=== PATIENT | female | born 1975 | race Caucasian/White ===

== ENCOUNTER → 2018-09-07 08:29 | Outpatient (CLI) | payer OTHER, SELFPAY ==
--- NOTE | 2018-09-07 | DI.MG.S_ITS ---
BILATERAL DIGITAL SCREENING MAMMOGRAM 3D/2D WITH CAD: 09/07/2018 CLINICAL: Baseline exam. Routine screening. No prior exams were available for comparison. The tissue of both breasts is heterogeneously dense. This may lower the sensitivity of mammography. Current study was also evaluated with a Computer Aided Detection (CAD) system. There is a focal asymmetry in the right breast upper outer aspect posterior depth. There also is a focal asymmetry in the right breast upper outer aspect middle depth. There is an asymmetry in the left breast inner aspect middle depth with possible architectural distortion. There are calcifications in the left breast posterior depth lower region seen on the mediolateral oblique view only. IMPRESSION: INCOMPLETE: NEEDS ADDITIONAL IMAGING EVALUATION 1) The focal asymmetry in the right breast upper outer aspect posterior depth is indeterminate. Additional views with possible ultrasound are recommended. 2) The focal asymmetry in the right breast upper outer aspect middle depth is indeterminate. Additional views with possible ultrasound are recommended. 3) The calcifications in the left breast posterior depth lower region seen on the mediolateral oblique view only is indeterminate. Magnification views as well as additional views with possible ultrasound are recommended. 4) The asymmetry in the left breast inner aspect middle depth with possible architectural distortion is indeterminate. Additional views with possible ultrasound are recommended. This exam was interpreted at Station ID: [id number]. NOTE: For mammograms, a report in lay terms will be sent to the patient. Approximately 15% of breast malignancies will not be visualized mammographically. In the management of a palpable breast mass, a negative mammogram must not discourage biopsy of a clinically suspicious lesion. Electronically Signed By: Issa Dumont M.D. ecl/:09/09/2018 09:26:14 letter sent: Additional Imaging Needed ACR BI-RADS Category 0: Incomplete 3340F
== END ==
PROVIDERS: PCP Internal Medicine; Visit Provider Internal Medicine
DX: Z12.31 Encounter for screening mammogram for malignant neoplasm of breast (principal)
CPT/HCPCS: 77063; 77067

== ENCOUNTER → 2018-09-26 13:29 | Outpatient (CLI) | payer OTHER, SELFPAY ==
--- NOTE | 2018-09-26 | DI.US.S_ITS ---
LIMITED ULTRASOUND OF RIGHT BREAST: 09/26/2018 CLINICAL: Patient returns today to evaluate asymmetries in the right breast. Comparison is made to exams dated: 09/26/2018 mammogram and 09/07/2018 mammogram - [facility]. Real-time and Doppler ultrasound of the right breast upper outer quadrant were performed. Del Real scale images of the real-time examination were reviewed. No underlying breast mass or abnormality is identified. There is no ultrasound correlate for the previously noted focal asymmetry in the right breast upper outer aspect posterior depth or the focal asymmetry in the right breast upper outer aspect middle depthon seen comparison screening mammograms, which also resolved on additional diagnostic mammogram views performed earlier today. IMPRESSION: NEGATIVE There is no sonographic evidence of malignancy in the imaged portions of the right breast. Return to annual screening mammography is recommended. The patient is advised to monitor her breasts and to return sooner for re-evaluation should she feel anything grow or change. This exam was interpreted at Station ID: [id number]. Electronically Signed By: Issa Dumont M.D. ecl/:09/26/2018 17:55:30 letter sent: Normal Exam Ultrasound BI-RADS: 1 Negative
--- NOTE | 2018-09-26 | DI.US.S_ITS ---
LIMITED ULTRASOUND OF LEFT BREAST: 09/26/2018 CLINICAL: Patient returns today to evaluate an asymmetry in the left breast. Comparison is made to exams dated: 09/26/2018 ultrasound, 09/26/2018 mammogram, and 09/07/2018 mammogram - [facility]. Real-time and Doppler ultrasound of the left breast upper inner quadrant were performed. Del Real scale images of the real-time examination were reviewed. No underlying breast mass or abnormality is identified. There is no ultrasound correlate for the previously noted asymmetry in the left breast upper inner aspect middle depth with possible architectural distortion seen on comparison screening mammograms, which also resolved on additional diagnostic mammogram views performed earlier today. IMPRESSION: NEGATIVE There is no ultrasound evidence of malignancy in the imaged portions of the left breast. Return to annual screening mammography is recommended. The patient is advised to monitor her breasts and to return sooner for re-evaluation should she feel anything grow or change. This exam was interpreted at Station ID: [id number]. Electronically Signed By: Issa Dumont M.D. ecl/:09/26/2018 17:53:18 letter sent: Normal Exam Ultrasound BI-RADS: 1 Negative
--- NOTE | 2018-09-26 | DI.MG.S_ITS ---
BILATERAL DIGITAL DIAGNOSTIC MAMMOGRAM 3D/2D WITH ADDITIONAL VIEWS: 09/26/2018 CLINICAL: Additional evaluation requested from prior study. Comparison is made to exam dated: 09/07/2018 [facility]. The tissue of both breasts is heterogeneously dense. This may lower the sensitivity of mammography. The previously noted focal asymmetry in the right breast upper outer aspect posterior depth, focal asymmetry in the right breast upper outer aspect middle depth, and asymmetry in the left breast inner aspect middle depth with possible architectural distortion seen on comparison screening mammogram resolve and have the appearance of benign fibroglanduar tissues with additional views. The asymmetry seen in the left breast inner aspect middle depth resolves to glandular tissue in the upper inner left breast. Previously noted calcifications in the left breast posterior depth lower region seen on the mediolateral oblique view only on comparison screening mammograms appear benign with additional and magnification views. IMPRESSION: INCOMPLETE: NEEDS ADDITIONAL IMAGING EVALUATION 1) The previously noted focal asymmetry in the right breast upper outer aspect posterior depth, focal asymmetry in the right breast upper outer aspect middle depth, and asymmetry in the left breast inner aspect middle depth with possible architectural distortion seen on comparison screening mammogram resolve with additional views. A targeted ultrasound is recommended for further evaluation. 2) Previously noted calcifications in the left breast posterior depth lower region seen on the mediolateral oblique view only on comparison screening mammograms appear benign with additional and magnification views. This exam was interpreted at Station ID: [id number]. NOTE: For mammograms, a report in lay terms will be sent to the patient. Approximately 15% of breast malignancies will not be visualized mammographically. In the management of a palpable breast mass, a negative mammogram must not discourage biopsy of a clinically suspicious lesion. Electronically Signed By: Issa Dumont M.D. ecl/:09/26/2018 17:50:47 ACR BI-RADS Category 0: Incomplete 3340F
== END ==
PROVIDERS: PCP Internal Medicine; Visit Provider Internal Medicine
DX: R92.8 Other abnormal and inconclusive findings on diagnostic imaging of breast (principal); R92.1 Mammographic calcification found on diagnostic imaging of breast
CPT/HCPCS: 76642; 77066; G0279

== ENCOUNTER → 2020-04-13 08:36 | Outpatient (CLI) | payer OTHER, SELFPAY ==
--- NOTE | 2020-04-13 | DI.CT.S_ITS ---
PROCEDURE: CT ABDOMEN PELVIS WO CON INDICATIONS: Unspecified abdominal pain,Dysuria TECHNIQUE: Noncontrast 5 mm thick sections acquired from the diaphragms to the symphysis. 5 mm coronal and sagittal reformats were then performed. For radiation dose reduction, the following was used: automated exposure control, adjustment of mA and/or kV according to patient size. COMPARISON: None. FINDINGS: Image quality: Excellent. ABDOMEN: Lung bases: Lung bases are clear. Heart size is normal. Solid organs: Liver is normal in size. Gallbladder appears normal . Pancreas is normal in contours. Spleen is normal in size. No adrenal nodules. Kidneys are normal in size, without hydronephrosis or nephrolithiasis. Peritoneum and bowel: Unenhanced bowel loops demonstrate normal wall thickness and caliber. No free fluid or air. Nodes and vessels: No retroperitoneal or mesenteric adenopathy by size criteria. Aorta and inferior vena cava are normal in caliber. Miscellaneous: No ventral hernias. PELVIS: Genitourinary: Bladder wall thickness is normal. Miscellaneous: No inguinal hernias or adenopathy. Bones: No suspicious bony lesions. No vertebral body compression fractures. IMPRESSION: Source of current abdominal pain is not identified. No hydronephrosis or nephrolithiasis is seen. The study is performed without intravenous contrast but no perinephric edema is identified. Dictated by: Micah Joaquin M.D. on 04/13/2020 at 14:44 Approved by: Micah Joaquin M.D. on 04/13/2020 at 14:45
== END ==
PROVIDERS: PCP Internal Medicine; Referring Provider Internal Medicine; Visit Provider Internal Medicine
DX: R10.9 Unspecified abdominal pain (principal); R30.0 Dysuria
CPT/HCPCS: 74176

== ENCOUNTER → 2020-06-18 12:05 | Outpatient (CLI) | payer OTHER, SELFPAY ==
--- NOTE | 2020-06-18 | DI.US.S_ITS ---
PROCEDURE: US PELVIC COMPLETE INDICATIONS: DYSMENORRHEA TECHNIQUE: Real-time scanning was performed of the pelvic organs, with image documentation. Additional endovaginal scanning was necessary due to incomplete visualization of the adnexal and endometrial structures by transabdominal scanning. COMPARISON: [facility], CT, CT ABDOMEN PELVIS WO CON, 04/13/2020, 8:52. FINDINGS: Transabdominal scanning: Limited scanning through the kidneys shows no hydronephrosis. No pathologic free abdominal or pelvic fluid. Endovaginal scanning: Uterus: Uterus is normal in size at 9.5 x 4.4 x 5.3 cm. The endometrium measures 10 mm in combined thickness. There is a fibroid seen along the mid uterus submucosally that measures 1.5 x 1.3 x 2 cm. Along the cervix, there is a 2 x 0.7 x 0.8 cm polyp versus clot seen with surrounding fluid. No abnormal vascularity can be seen. Ovaries: The right ovary measures 2.3 x 1.9 x 2.4 cm and demonstrates a simple cyst within it which is considered to be within physiologic limits that measures up to 2.1 cm. The left ovary is not seen on this study. No adnexal masses are seen on either side. IMPRESSION: There is a submucosal uterine fibroid seen that measures up to 2 cm. Along the cervical canal, there is a polyp versus clot seen that measures up to 2 cm. At clinical discretion, a followup pelvic ultrasound could be considered in 6 weeks to assure resolution/ improvement. If this does not resolve in 6 weeks, then please consider a dedicated sonohysterogram or gynecological protocol MRI (without and with contrast) for further evaluation (assuming that there is no contraindication). Limited study, without visualization of the left ovary. Dictated by: Elgin Hernandez M.D. on 06/18/2020 at 12:22 Approved by: Elgin Hernandez M.D. on 06/18/2020 at 12:25
== END ==
PROVIDERS: PCP Internal Medicine; Referring Provider Internal Medicine; Visit Provider Internal Medicine
DX: N92.0 Excessive and frequent menstruation with regular cycle (principal); D25.0 Submucous leiomyoma of uterus
CPT/HCPCS: 76830; 76856

== ENCOUNTER → 2020-08-18 14:16 | Outpatient (CLI) | payer OTHER, SELFPAY ==
[2020-08-18 14:49] LABS: COVID19 -Nasal RAPID Negative (Negative)
== END ==
PROVIDERS: PCP Internal Medicine; Visit Provider Obstetrics & Gynecology
DX: Z01.812 Encounter for preprocedural laboratory examination (principal); Z20.822 Contact with and (suspected) exposure to COVID-19
CPT/HCPCS: 87635

== ENCOUNTER 2020-08-19 06:07 | Day surgery (SDC) | payer OTHER, SELFPAY ==
[2020-08-19] VITALS (17 sets, daily range): BP systolic 103–132; BP diastolic 67–82; PULSE 74–979; RESP 10–20; TEMP 36.3–37.4; O2SAT 91–97; BMI 33.5
--- NOTE | 2020-08-19 | PATH_ITS ---
[facility] Accession Number: [id number] . 01 Material submitted: . PART A: ovary - LEFT OVARIAN CYST PART B: uterus - UTERUS AND BILATERAL FALLOPIAN TUBES . 01 Clinical history: . [facility] W/CHANDRIKA SALPINGECTOMY *OPB* . 02 Diagnosis: A. Left Ovarian Cyst: Portions of benign corpus luteum cyst (2.0 x 1.5 x 1.2 cm in aggregate dimension). . B. Uterus and Bilateral Fallopian Tubes, Laparoscopic Supracervical Hysterectomy with Bilateral Salpingectomy (Morcellated Uterus, Weight 90 grams): Proliferative endometrium; negative for glandular hyperplasia, cytologic atypia, or malignancy. Myometrium with multiple mitotically active intramural leiomyomas (5-20 mm in greatest dimension); negative for cytologic atypia or regions of necrosis. Uterine serosa with no significant histomorphologic abnormality. Falloipan tubes with a focally disrupted serosal surface and with multiple benign paratubal cysts (1-3 mm in greatest dimension); negative for atypia or malignancy. [facility] 08/23/2020 1552 Local . 02 Electronically signed: . Lisette Isidro MD, Pathologist NPI- [id number] . 01 Gross description: . A. Specimen A is received in formalin labeled left ovarian cyst and consists of two noble-pink cyst fragments, measuring 2.0 x 1.5 x 1.2 cm in aggregate. The inner lining is noble-pink and smooth with no papillary excrescences. The specimen is serially sectioned and entirely submitted in cassettes A1-A2. B. Specimen B is received in formalin labeled uterus and bilateral fallopian tubes and consists of a 90 gram morcellated uterus measuring 11.0 x 10.0 x 5.5 cm in aggregate. The cervix is not identified. The serosa is noble-pink and smooth. There is minimal identifiable noble-pink endometrium measuring 0.1 cm in thickness. The myometrium is noble-pink and trabeculated. There are multiple noble-white, whorled leiomyomata and leiomyomata fragments ranging from 0.5 to 2.0 cm with no areas of hemorrhage, necrosis or cystic degeneration. Also, received are two detached fallopian tubes averaging 5.5 cm in length x 0.8 cm in diameter. The serosa is noble-pink, focally disrupted and smooth with multiple paratubal cysts ranging from 0.1 to 0.3 cm. [employer] sections are submitted. . B1-B3 - [employer] candidate endometrium. B4-B5 - [employer] leiomyomata. B6-B7 - [employer] myometrium and serosa. B8-B9 - Fallopian tubes, telephone service representative cross sections and bisected fimbria. ([id number]) /[facility] 08/20/2020 1635 Local . 02 Pathologist provided ICD-10: N92.0, N94.6 . 02 CPT . 269346, [id number] Performed at: 01 [facility] [address] [id number] MD Cory Menendez MD Phone: [phone] Performed at: 02 [facility] [address] [place] [id number] MD Lynn Monroy MD Phone: [phone]
[2020-08-19] MEDS: LACTATED RINGERS 1,000 ML 42 ML IV ×2 (07:21→08:52)
--- NOTE | 2020-08-19 07:25 | SUR.OPER ---
Lithotomy on padded OR bed. [place] Pad Positioner under torso. Head on pillow, arms padded and tucked at sides. Legs secured in padded yellow fins stirrups.
--- NOTE | 2020-08-19 07:43 | PM.PREOP ---
Pre-operative Note COVID-19 COVID-19 status: Negative Result date/Date tested (Pos, Neg/Pending): 08/18/20 Interval Note History & Physical reviewed/Exam performed by Physician: Yes Changes to H&P: No H&P completed within 30 days and has changed as indicated here:: 08/18/20
[2020-08-19] MEDS: SCOPOLAMINE 1 PATCH TOP ×2 (07:45→07:46)
[2020-08-19] MEDS: GABAPENTIN 300 MG CAPSULE PO ×2 (07:45)
[2020-08-19] MEDS: ACETAMINOPHEN 325 MG TABLET 975 MG PO (07:45)
[2020-08-19] MEDS: CEFAZOLIN 2 GM/100 ML FROZ.PIGGY IV (07:58)
[2020-08-19] MEDS: BUPIVACAINE 0.5% W/ EPI (PF) 30 ML VIAL INJ (08:32)
--- NOTE | 2020-08-19 09:55 | PM.GYNOP.1 ---
Operative Date/Time/Diagnoses Date of procedure: 08/19/20 Time of procedure: 09:55 Pre-op diagnosis: Fibroids Menorrhagia Dysmenorrhea Post-op diagnosis: same (With bladder adhesions and left ovarian cyst) Procedure & Clinicians Procedure: Procedures Operation Date: 08/19/20 07:45 Actual Procedures Side Surgeon p Laparoscopic Supracervical Hysterectomy w/ bilateral salpingectomy and excision left ovarian cyst Augustina Pérez MD Indications: Fibroid uterus Menorrhagia Dysmenorrhea Pelvic pain Surgeon: Augustina Pérez Liaison Inspection Laboratory Assistant: Bessy Isabel Anesthesia Type: General and Local Operative Notes Findings: Eight week size anteverted uterus Normal tubes bilaterally Normal right ovary Left ovary with 3 cm simple cyst Normal liver gallbladder Normal appendix Lower uterine segment to bladder adhesions Closure Type: primary Specimen(s): left tube, right tube and uterus Applied: catheter (To continuous drainage) Estimated blood loss (mL): 50 Blood products transfused: none Procedure in detail: The patient was taken to the operating room where she was placed in the dorsal supine position. After adequate general endotracheal anesthesia was achieved, she was placed in the dorsal lithotomy position, and prepped and draped in the usual sterile fashion. A timeout was performed. A bivalve speculum was placed into the vagina and the anterior lip of the cervix grasped with a single-tooth tenaculum. The cervical os was sequentially dilated until the ZUMI uterine manipulator could pass easily into the endometrial cavity. The single-tooth tenaculum was removed from the anterior lip of the cervix, and the bivalve speculum was removed from the vagina. Attention was then turned to the abdomen where 6 mL of half percent Marcaine with epinephrine were injected in the umbilical fold. A 5 mm incision was made. The Verhees needle was placed into the peritoneal cavity, and its placement confirmed by aspiration and drop test. The Verhees needle was removed. A 5 mm trocar was placed without difficulty. 2 other incisions were made 4 cm lateral to the umbilicus after 5 mL of half percent Marcaine with epinephrine were injected. These were 5 mm incisions. Two 5 mm trocars were placed under direct visualization. The right tube was grasped with an atraumatic grasper. Using the plasma kinetic with settings of 40 W the mesosalpinx was cauterized and cut all the way down to the cornua of the uterus. The cornua of the uterus was then grasped with an atraumatic grasper. The utero-ovarian ligaments were cauterized and cut. The round ligament and broad ligament was cauterized and cut with plasma kinetic. Hemostasis was achieved. The bladder flap was created using the endoshears. The uterine arteries on the right side were extensively cauterized with plasma kinetic. All of this was repeated on the left side. The remainder of the bladder flap was created using the endoshears with careful dissection, and the bladder taken down off the lower uterine segment and cervix. Using the [place], the cervix was amputated from the uterus 2 cm above the uterosacral ligaments, after the ZUMI uterine manipulator was removed from the uterus. There was a small amount of bleeding noted from the posterior edge of the cervix, and this was cauterized for hemostasis. The endocervical canal was extensively cauterized. A sponge stick was placed into the vagina. 6 mL of half percent Marcaine with epinephrine were injected above the pubic symphysis. A 12 mm trocar was placed. An Endobag was placed through the suprapubic trocar and the uterus placed into the Endobag. The Cameron placed into the endobag. The uterus and tubes were hand morcellated in approximately 10 pieces. The Endobag was removed from the peritoneal cavity with the Cameron. The pelvis was copiously irrigated with warm normal saline. No bleeding was noted. The instruments are removed from the abdomen. The CO2 was allowed to escape. The suprapubic incision was closed on the fascia with 0 Vicryl. Two simple interrupted sutures with 2-0 Vicryl were placed in the subcutaneous layer to reapproximate. All of the incisions were closed with 4-0 Biosyn in a subcuticular fashion. The moistened sponge stick was removed from the vagina. Sponge, lap, and instrument counts were correct x-2. The patient tolerated the procedure well, was taken to PACU in stable condition. Complications: none Post-operative Condition: stable Disposition: PACU Plan for aftercare: To acute care after recovery
[2020-08-19] MEDS: fentaNYL 100 MCG/2 ML INJ IV ×3 (10:00→10:26)
[2020-08-19] MEDS: OXYCODONE IR 5 MG TABLET PO ×5 (10:22→23:19)
[2020-08-19] MEDS: LACTATED RINGERS 1,000 ML 100 ML IV (14:17)
[2020-08-19] MEDS: CEFAZOLIN 1 GM/50 ML FROZ.PIGGY IV ×2 (16:43→23:51)
[2020-08-19] MEDS: KETOROLAC 30 MG/ML VIAL IV ×2 (18:21→23:52)
[2020-08-19] MEDS: ACETAMINOPHEN 325 MG TABLET 650 MG PO ×2 (18:21→23:50)
[2020-08-19] MEDS: ATORVASTATIN 20 MG TABLET 10 MG PO (20:07)
[2020-08-20] VITALS: BP 104/56; PULSE 94; RESP 16; TEMP 37.1; O2SAT 96
[2020-08-20] MEDS: LACTATED RINGERS 1,000 ML 100 ML IV (00:46)
[2020-08-20 05:19] VITALS: BP 110/66; PULSE 70; RESP 16; TEMP 36.8; O2SAT 96
[2020-08-20] MEDS: LEVOTHYROXINE 75 MCG TABLET PO (05:59)
[2020-08-20] MEDS: ACETAMINOPHEN 325 MG TABLET 650 MG PO (06:00)
[2020-08-20] MEDS: KETOROLAC 30 MG/ML VIAL IV (06:00)
[2020-08-20] MEDS: OXYCODONE IR 5 MG TABLET PO (08:04)
--- NOTE | 2020-08-20 08:09 | PM.DS.1 ---
History of Present Illness History of Present Illness Date Patient Seen: 08/20/20 Time Patient Seen: 08:09 Chief complaint: [facility] W/CHANDRIKA SALPINGECTOMY *OPB* Narrative: Patient is a 44-year-old 3 para 2 postop day # 1 status post [facility]/bilateral salpingectomy. She is voiding without catheter. She has tolerated a diet. Her pain is well controlled. She has no nausea or vomiting. She is ambulating without assistance. Discharge Providers Provider Discharge Date: 08/20/20 Primary care physician: CLARICE Schmitt Discharge provider: Augustina Pérez MD Summary Hospital Course Discharge Diagnosis: Fibroid uterus Dysmenorrhea Menorrhagia Adenomyosis Left ovarian cyst Normal tubes Normal right ovary Normal liver and gallbladder Normal appendix Hospital Course: Patient is a 44-year-old 3 para 2 who presented on August 19, 2020 for a scheduled [facility]/bilateral salpingectomy. She was found to have a left ovarian cyst. This was excised at the same time. She underwent this procedure without complication. Her postoperative course is unremarkable. Her catheter was removed on postop day # 0. She was able to void without the catheter. She is tolerating a diet. No nausea or vomiting. Pain is well controlled. She is ambulating without assistance. Status at Discharge Cognitive/behavioral status at discharge: oriented Functional status at discharge: independent ambulation Overall status at discharge: patient is progressing back to baseline Time Spent with Patient Time spent: Greater than 30 minutes Exam Vital Signs (past 8 hours): - 08/20/20 05:19 Temperature 98.2 F Pulse Rate 70 Respiratory Rate 16 Blood Pressure 110/66 Pulse Oximetry 96 Oxygen Delivery Method Room Air Oxygen Flow Rate 0 Narrative Exam Narrative: Generally: Patient is sitting up in bed, no acute distress Lungs: Clear to auscultation bilaterally Cardiovascular: Regular rate and rhythm Abdomen: Soft and flat. Incisions: Clean dry and intact with Allevyn dressings. No erythema or drainage Extremities: Negative Homans [facility] Surgical History (Updated 10/09/17 @ 06:17 by Conversion Provider) Status post delivery Status post delivery Family History (Updated 08/10/14 @ 00:00 by Conversion Provider) Brother Age: 44 Colon cancer Father Age: 73 Hypertension High cholesterol Grandfather Age: 88 Heart disease Mother Age: 67 Hypertension High cholesterol Sister Age: 42 Mental health problem Social History household members: spouse Smoking Status: Former smoker alcohol intake: current Discharge Assessment & Plan Assessment and Plan Assessment: Postop day # 1 status post [facility]/bilateral salpingectomy/excision of left ovarian cyst, doing very well Plan of Treatment: Discharge to home F/U 2 wks. Discharge Plan Discharge Plan Patient Disposition: Home Provider Discharge Comment: Call with fever, chills, redness or drainage around incisions or bleeding vaginally more than spotting Ibuprofen 600mg every 6 hours Tylenol 650mg every 6 hours Discharge orders & Medications Discharge Orders: Discharge (Order); Ordered 08/20/20 Ordered By: Augustina Pérez Prescriptions: New oxycodone 5 mg tablet 5 mg PO Q4H PRN (Reason: pain) Qty: 20 RF: 0 Continued levothyroxine [Synthroid] 75 mcg tablet 75 mcg PO QAM Qty: 90 RF: 0 atorvastatin [Lipitor] 10 mg tablet 10 mg PO HS Qty: 30 RF: 0 Follow up/Referrals: Augustina Pérez MD [Physician] - 2 Weeks Francisca Nieto ARNP [Primary Care Provider] - Diet/Activity/Treatments Diet: Regular Activity: No heavy lifting Skin/Wound/Dressing Care Report to your healthcare provider any signs of infection, such as:: chills, fever, increased pain, unusual drainage and unusual redness Dressing: Remove pink dressings with attached guaze after a shower on the third day May shower daily Visit Report/Discharge Packet Instructions: DI for Hysterectomy, DI for Laparoscopy, DI for Prescription Opioid Use, Oxycodone Stand Alone Forms: Surgery Discharge Discharge Data Primary Care Provider: Francisca Nieto Attending Provider: Augustina Pérez Quality VTE Deep Vein Thrombosis/Pulmonary Embolism Present on Admission: No
--- NOTE | 2020-08-20 08:14 | PC.NURSE ---
Assisted patient to the bathroom with nursing service administrator @ 0700. Educated patient on fall risk, applied non-stick socks. Asked patient if she was feeling any dizziness or nausea, patient denied any dizziness/nausea. Pt. was receiving IV fluids so she brought IV pole to bathroom. Pt. ambulated without difficulty or assistive device to bathroom, demonstrated a steady gait. Instructor educated the patient to pull the chord when finished and we would return to help her back to bed. Returned to check on patient after 10 minutes and the patient had returned to bed with the help of her support person. Attempted to enter room to perform physical assessment, obtain more details on pain, and assess output. The patients doctor was consulting with her so I recorded output and left the room so she could finish. Returned at 0800 with primary nurse to complete assessment. Patient reported pain as 7/10 and appeared to be more uncomfortable. She reported she is much more sore than yesterday. Pain location was in abdomen. Listened to her heart, anterior lung sounds, checked feet circulation, pedal pulses all assessments appeared within normal limits. Asked pt. if experiencing pain in legs, she denied any pain in legs. Primary nurse administered pain medication 5mg Oxycodone ordered PRN. Patient reported no nausea. Reported no bowel movements since surgery but some gas passed during urination. Left patient to eat breakfast. Will return after breakfast to complete physical assessment.
[2020-08-20 08:24] VITALS: BP 106/71; PULSE 83; RESP 16; TEMP 37.2; O2SAT 94
--- NOTE | 2020-08-20 09:32 | PC.NURSE ---
0930 - Assessed patient, pain rated 5/10 and tolerable, improved after pain medication. Pt ambulated well to bathroom, output was 700ml gabrielle colored clear urine. Normal heart and lung sounds, denies any nausea or AMINAH. Normo-active bowel sounds. Pulse was 88bpm. Denies any blurry vision. Assessed IV site - fluids currently running at 100ml/hr.
--- NOTE | 2020-08-20 10:22 | CM.DANOTE ---
1000 - D/C'd IV fluids, Flushed IV with 5ml normal saline, DC'd IV, catheter tip intact, applied pressure with 2x2 gauze and secured with tape. Educated patient on Oxycodone safety instructions and new prescription for pain management. Included education on constipation, not driving/operating machinery while taking oxycodone, no drinking alcohol, alternative pain management including Ibuprofen and Tylenol, only take oxycodone as needed. Continue home medications, when to remove the bandages per doctors instructions, discussed showering, Discussed 2 week follow up appointment, no heavy lifting, additional informational packets. Also discussed signs of infection and when to contact the doctor. Educated patient on how to avoid constipation including stool softeners and Miralax. Patient was escorted to vehicle by TIFFANY @[id number].
--- NOTE | 2020-08-20 10:35 | PC.NURSE ---
Discharge packet reviewed, all questions answered. IV removed. Escorted off of unit at 10:15 via wheelchair to personal vehicle, driving home.
--- NOTE | 2020-08-20 15:05 | CM.DANOTE ---
DCP: assessment: note: Case received, EMR reviewed. Discussed in Team Rounds. Pt admitted for a scheduled gynecological procedure under care of Dr. Pérez. Payer: [facility]. Admission status: SDC: confirmed by UR YULIANA Cunha. A check in after Rounds showed that pt had been ok'd for home and had left in company of her at 1030. No d/c concerns were noted.
== END 2020-08-20 10:15 | disposition home or self-care (01) ==
LOC: OR 06:09 → AC 06:15
PROVIDERS: PCP Internal Medicine; Referring Provider Internal Medicine; Visit Provider Obstetrics & Gynecology
PROC: 0UT94ZL Resection of Uterus, Supracervical, Percutaneous Endoscopic Approach (ICD-10-PCS; CPT 58542; principal; 2020-08-19 07:45)
DX: D25.1 Intramural leiomyoma of uterus (principal); N32.89 Other specified disorders of bladder; N83.12 Corpus luteum cyst of left ovary; N83.8 Other noninflammatory disorders of ovary, fallopian tube and broad ligament; E66.9 Obesity, unspecified; Z68.34 Body mass index [BMI] 34.0-34.9, adult
CPT/HCPCS: 58542; 58662; J0690; J1100; J1885; J2250; J2405; J2704; J3010

== ENCOUNTER → 2020-08-26 14:13 | Outpatient (CLI) | payer OTHER, SELFPAY ==
[2020-08-19 13:11] VITALS: BMI 33.5
[2020-08-26] MEDS: COVID-19 VACC #1, MRNA(MOD) 100 MCG/0.5 ML VIAL IM (14:16)
== END ==
PROVIDERS: PCP Internal Medicine; Visit Provider Internal Medicine
DX: Z23 Encounter for immunization (principal)
CPT/HCPCS: 0011A; 91301

== ENCOUNTER → 2020-09-01 08:05 | Outpatient (CLI) | payer OTHER, SELFPAY ==
[2020-08-19 13:11] VITALS: BMI 33.5
== END ==
PROVIDERS: PCP Internal Medicine; Visit Provider Obstetrics & Gynecology
DX: M54.5 Low back pain (principal); R30.0 Dysuria
CPT/HCPCS: 87086

== ENCOUNTER → 2020-09-18 08:24 | Outpatient (CLI) | payer OTHER, SELFPAY ==
[2020-08-19 13:11] VITALS: BMI 33.5
--- NOTE | 2020-09-18 | DI.MG.S_ITS ---
BILATERAL DIGITAL SCREENING MAMMOGRAM 3D/2D WITH CAD: 09/18/2020 CLINICAL: Routine screening. Comparison is made to exams dated: 09/26/2018 mammogram and 09/07/2018 mammogram - [facility]. The tissue of both breasts is heterogeneously dense. This may lower the sensitivity of mammography. Current study was also evaluated with a Computer Aided Detection (CAD) system. No significant masses, calcifications, or other findings are seen in either breast. There has been no significant interval change. IMPRESSION: NEGATIVE There is no mammographic evidence of malignancy. A 1 year screening mammogram is recommended. This exam was interpreted at Station ID: [id number]. NOTE: For mammograms, a report in lay terms will be sent to the patient. Approximately 15% of breast malignancies will not be visualized mammographically. In the management of a palpable breast mass, a negative mammogram must not discourage biopsy of a clinically suspicious lesion. Electronically Signed By: Shoshana winn/shelbi:09/20/2020 09:10:32 letter sent: Normal Exam ACR BI-RADS Category 1: Negative 3341F
== END ==
PROVIDERS: PCP Internal Medicine; Referring Provider Internal Medicine; Visit Provider Internal Medicine
DX: Z12.31 Encounter for screening mammogram for malignant neoplasm of breast (principal)
CPT/HCPCS: 77063; 77067

== ENCOUNTER → 2020-09-23 08:25 | Outpatient (CLI) | payer OTHER, SELFPAY ==
[2020-08-19 13:11] VITALS: BMI 33.5
[2020-09-23] MEDS: COVID-19 VACC #2, MRNA(MOD) 100 MCG/0.5 ML VIAL IM (08:30)
== END ==
PROVIDERS: PCP Internal Medicine; Visit Provider Internal Medicine
DX: Z23 Encounter for immunization (principal)
CPT/HCPCS: 0012A; 91301

== ENCOUNTER → 2020-10-07 15:20 | Outpatient (CLI) | payer OTHER, SELFPAY ==
[2020-08-19 13:11] VITALS: BMI 33.5
[2020-10-07 18:03] LABS: Free T4, Direct Thyroxine 1.17 ng/dL (0.78-2.19)
[2020-10-07 18:17] LABS: Thyroid Stimulating Hormone 1.64 uIU/mL (0.47-4.68)
== END ==
PROVIDERS: PCP Internal Medicine; Referring Provider Obstetrics & Gynecology; Visit Provider Obstetrics & Gynecology
DX: E03.9 Hypothyroidism, unspecified (principal)
CPT/HCPCS: 36415; 84439; 84443

== ENCOUNTER 2022-04-16 22:55 | Emergency (ER) | payer OTHER, SELFPAY ==
[2020-08-19 13:11] VITALS: BMI 33.5
[2022-04-16] VITALS (7 sets, daily range): BP systolic 105–106; BP diastolic 64–76; PULSE 67–85; RESP 10–16; TEMP 36.4; O2SAT 93–99
--- NOTE | 2022-04-16 23:17 | ED.GENADULT ---
HPI - General Adult General Chief complaint: Syncope Stated complaint: Syncope Time Seen by Provider: 04/16/22 23:04 Source: patient and EMS Mode of arrival: EMS History of Present Illness HPI narrative: 46-year-old female nonsmoker with history of hyperlipidemia, hypothyroidism and prior syncopal episodes presents by EMS for evaluation of possible seizure activity this evening. She had been in her normal state of health and states that she had been lying on her couch and stood up to do something in the kitchen. She states that she started to feel a bit funny and lightheaded and the next thing she knew she was on the ground. Her heard a sound and came around the corner and found her twitching a bit and states it looked like she was having a seizure. Does not sound like it lasted that long with the duration is unclear, certainly less than a minute or so. She woke up nearly immediate leave after the event and EMS arrived shortly thereafter. She still was a bit lightheaded and clammy when they arrived and found her initial blood pressure to be in the 80s. She was given an IV and a 500 mL bolus of normal saline and felt normal and at her baseline on arrival. She denies any injury as a consequence of her episode. She states that leading into this she had no headache or blurred vision. She denies any chest pain or shortness of breath. She did have a brief episode of lower abdominal discomfort earlier this morning with a had resolved long before this evening's event and continues to be absent. She denies dysuria, frequency or urgency. Related Data Previous Rx's Medication Instructions Recorded levothyroxine 75 mcg tablet 75 mcg PO QAM #90 tabs 05/07/18 (Synthroid) atorvastatin 10 mg tablet (Lipitor) 10 mg PO HS #30 tabs 07/29/18 Allergies Allergy/AdvReac Type Severity Reaction Status Date / Time meperidine [From DEMEROL] Allergy Mild vomiting Verified 10/07/20 15:01 Review of Systems Review of Systems Narrative: GENERAL: Denies chills, fatigue, malaise, fever, sweats. HEENT: Denies sinus pain, ear pain, sore throat, difficulty swallowing, dizziness. RESPIRATORY: Denies dyspnea, cough, wheezing, hemoptysis, sputum. CARDIOVASCULAR: See HPI GASTROINTESTINAL: Denies nausea, vomiting, abdominal pain, diarrhea, constipation, melena. : Denies dysuria, frequency, incontinence, hematuria, urinary retention. MUSCULOSKELETAL: denies weakness, joint pain, or bony pain SKIN: Denies rash, skin lesions, or other NEUROLOGIC: Denies weakness, headache, numbness, change in speech, confusion, seizures, incoordination. PSYCHIATRIC: No concerning psychosocial issues. 12 point review of systems is negative except for those stated above Patient History Surgical History Status post delivery Status post delivery Family History Brother Age: 45 Colon cancer Father Age: 74 Hypertension High cholesterol Grandfather Age: 89 Heart disease Mother Age: 68 Hypertension High cholesterol Sister Age: 43 Mental health problem Social History household members: spouse Smoking Status: Former smoker alcohol intake: current Smoking Status: Former smoker alcohol intake frequency: a few times a month Substance Use Type: does not use Exam Narrative Exam Narrative: GENERAL: [46] year old patient appears stated age. Well-developed patient, in mild distress. HEAD: Atraumatic. Normocephalic. EYES: Pupils equal round and reactive. Extraocular motions intact. No scleral icterus. No injection or drainage. ENT: Nose without bleeding, purulent drainage. Throat without erythema, tonsillar hypertrophy or exudate. Airway patent. NECK: Trachea midline. Non tender CARDIOVASCULAR: Regular rate and rhythm without murmurs, gallops, or rubs. RESPIRATORY: Clear to auscultation. Breath sounds equal bilaterally. No wheezes, rales, or rhonchi. GASTROINTESTINAL: Abdomen soft, non-tender, nondistended. EXTREMITIES: No edema or joint tenderness. BACK: Nontender without deformity or crepitance. No flank tenderness. NEURO: AOx3. SKIN: No rash or erythema of visible areas Initial Vital Signs Initial Vital Signs: Vital Signs Pulse Rate 73 04/16/22 22:59 Blood Pressure 106/76 04/16/22 22:59 Pulse Oximetry 98 04/16/22 22:59 Course Orders Ordered: ED Orders 04/16/22 23:04 Complete Blood Count AUTO DIFF Stat Comprehensive Metabolic Panel Stat D Dimer Stat Free T4, Direct Thyroxine Stat Magnesium Stat TSH w/ Reflex to FT4 Stat Troponin & CK Cardiac Panel Stat EKG-12 Lead Stat Discontinued Medications Sodium Chloride (Normal Saline 0.9%) 1,000 mls @ 1,000 mls/hr IV BOLUS ONE Stop: 04/17/22 00:03 Last Infusion: 04/17/22 00:15 Dose: 0 mls/hr Documented By: Admin: 04/16/22 23:26 Dose: 1,000 mls/hr Documented By: YONAS Reevaluation(s) Reevaluation #1: Patient feels significant F not complete resolution symptoms soon after arrival and receiving fluids. Vital Signs Vital signs: Vital Signs - 8 hr 04/16/22 23:05 04/16/22 23:17 04/16/22 22:59 Temperature 97.6 F Pulse Rate 85 Respiratory Rate 16 Blood Pressure 105/72 106/76 Pulse Oximetry 99 Oxygen Delivery Method Room Air 04/16/22 22:59 04/16/22 23:00 04/16/22 23:00 Temperature Pulse Rate 73 73 Respiratory Rate 10 L Blood Pressure 105/72 Pulse Oximetry 98 98 Oxygen Delivery Method 04/16/22 23:15 04/16/22 23:15 04/16/22 23:30 Temperature Pulse Rate 67 Respiratory Rate 13 Blood Pressure 106/64 106/66 Pulse Oximetry 99 Oxygen Delivery Method 04/16/22 23:30 04/16/22 23:45 04/16/22 23:45 Temperature Pulse Rate 69 75 Respiratory Rate 13 13 Blood Pressure 105/65 Pulse Oximetry 98 93 Oxygen Delivery Method 04/17/22 00:00 04/17/22 00:00 04/17/22 00:15 Temperature Pulse Rate 77 79 Respiratory Rate 13 21 Blood Pressure 108/62 Pulse Oximetry 95 97 Oxygen Delivery Method 04/17/22 00:15 04/17/22 00:30 04/17/22 00:30 Temperature Pulse Rate 85 Respiratory Rate 21 Blood Pressure 109/69 104/60 Pulse Oximetry 95 Oxygen Delivery Method Medical Decision Making Lab Data Result diagrams: 04/16/22 23:04 04/16/22 23:04 Labs: Lab Results 04/16/22 04/16/22 04/16/22 Range/Units 23:04 23:04 23:04 WBC 10.2 (4.5-11.0) X10^3/uL RBC 4.15 (4.0-5.2) X10^6/uL Hgb 11.6 L (12.0-16.0) g/dL Hct 35.5 L (36-46) % MCV 85.5 (80-100) fL MCH 28.0 (26-34) PG MCHC 32.7 (30-36) % RDW 13.8 (11.6-14.8) % Plt Count 356 (150-400) X10^3/uL Neut % (Auto) 49.2 L (50-75) % Lymph % (Auto) 35.9 (25-40) % Ballard % (Auto) 10.0 (3-14) % Eos % (Auto) 4.2 H (2-4) % Baso % (Auto) 0.7 (0-2) % Neut # (Auto) 5000 (2168-8492) /uL Lymph # (Auto) 3700 (1769-0385) /uL Ballard # (Auto) 1000 H (0-900) /uL Eos # (Auto) 400 (0-450) /uL Baso # (Auto) 100 (0-100) /uL D-Dimer < 215 (<500) ng/ml Sodium 137 (137-145) mmol/L Potassium 3.5 (3.4-5.1) mmol/L Chloride 104 (98-107) mmol/L Carbon Dioxide 25 (22-32) mmol/L BUN 23 H (7-17) mg/dL Creatinine 0.93 (0.52-1.04) mg/dL Estimated GFR > 60 (>60) mL/min BUN/Creatinine Ratio 24.7 H (6-22) Glucose 121 H (70-100) mg/dL Calcium 8.6 (8.4-10.2) mg/dL Magnesium 2.0 (1.6-2.3) mg/dL Total Bilirubin 0.2 (0.2-1.3) mg/dL AST 31 (14-36) IU/L ALT 46 H (<35) IU/L Alkaline Phosphatase 54 (38-126) U/L Total Creatine Kinase 69 (30-135) U/L CK-MB (CK-2) TNP CK-MB (CK-2) Rel Index TNP Troponin I < 0.012 (0.01-0.034) ng/mL Total Protein 6.9 (6.3-8.2) g/dL Albumin 3.9 (3.5-5.0) g/dL Globulin 3.0 (1.7-4.1) g/dL Albumin/Globulin Ratio 1.3 (1.0-2.8) TSH (0.47-4.68) uIU/mL 04/16/22 Range/Units 23:04 WBC (4.5-11.0) X10^3/uL RBC (4.0-5.2) X10^6/uL Hgb (12.0-16.0) g/dL Hct (36-46) % MCV (80-100) fL MCH (26-34) PG MCHC (30-36) % RDW (11.6-14.8) % Plt Count (150-400) X10^3/uL Neut % (Auto) (50-75) % Lymph % (Auto) (25-40) % Ballard % (Auto) (3-14) % Eos % (Auto) (2-4) % Baso % (Auto) (0-2) % Neut # (Auto) (2401-7422) /uL Lymph # (Auto) (7109-2774) /uL Ballard # (Auto) (0-900) /uL Eos # (Auto) (0-450) /uL Baso # (Auto) (0-100) /uL D-Dimer (<500) ng/ml Sodium (137-145) mmol/L Potassium (3.4-5.1) mmol/L Chloride (98-107) mmol/L Carbon Dioxide (22-32) mmol/L BUN (7-17) mg/dL Creatinine (0.52-1.04) mg/dL Estimated GFR (>60) mL/min BUN/Creatinine Ratio (6-22) Glucose (70-100) mg/dL Calcium (8.4-10.2) mg/dL Magnesium (1.6-2.3) mg/dL Total Bilirubin (0.2-1.3) mg/dL AST (14-36) IU/L ALT (<35) IU/L Alkaline Phosphatase (38-126) U/L Total Creatine Kinase (30-135) U/L CK-MB (CK-2) CK-MB (CK-2) Rel Index Troponin I (0.01-0.034) ng/mL Total Protein (6.3-8.2) g/dL Albumin (3.5-5.0) g/dL Globulin (1.7-4.1) g/dL Albumin/Globulin Ratio (1.0-2.8) TSH 7.75 H (0.47-4.68) uIU/mL Urine Dip Bedside Urine Glucose Negative Bedside Urine Bilirubin - Negative Bedside Urine Ketone - Negative Urine Specific Azalea 1.025 Bedside Urine Occult Blood - Negative Bedside Urine pH 6.0 Bedside Urine Protein - Negative Bedside Urine Urobilinogen - Negative Bedside Urine Nitrite - Negative Bedside Urine Leukocytes - Negative Esterase Point of care testing: Urine Dip Bedside Urine Glucose Negative Bedside Urine Bilirubin - Negative Bedside Urine Ketone - Negative Urine Specific Azalea 1.025 Bedside Urine Occult Blood - Negative Bedside Urine pH 6.0 Bedside Urine Protein - Negative Bedside Urine Urobilinogen - Negative Bedside Urine Nitrite - Negative Bedside Urine Leukocytes - Negative Esterase ECG Data Interpretation: [2313] EKG is normal sinus rhythm rate [67 ] and free of any signs of ischemia or ectopy. No ST segmental elevation or depression. No T wave inversions MDM Narrative Medical decision making narrative: Multiple etiologies for patient's symptoms considered including: [Syncope versus seizure versus other Patient story seems certainly most consistent with syncope though seizure is considered. She had a prodromal symptom and felt lightheaded upon standing from a laying position, furthermore she had a near complete improvement symptoms rapidly after her episode rather than having a more classic postictal syndrome that we might expect with a seizure. Patient's symptoms improved over duration of stay with above-stated therapies. Findings and discharge diagnosis discussed with patient/family followed by verbalization of understanding Return precautions discussed with patient/family whom verbalize understanding. Discharge Plan Departure Patient Disposition: Home Clinical Impression: Syncope and collapse Instructions: DI for Syncope in Adults (Fainting) Activity Restrictions/Additional Instructions: *You have been diagnosed with [syncope. As we discussed your history, physical exam, labs, EKG are very reassuring and most likely a consequence of a syncopal episode though seizure and others were considered. *What to do: *Please continue to take your regular medications as directed. [ ] New medication prescriptions sent to your pharmacy: [ ] [ ] New medication written as a paper prescription [ ] No new medications given *Please follow up with your primary care provider in 2-3 days, call for an appointment. Let them know you were seen in the Emergency Department and that we ask that you be seen in follow up. We will electronically transmit a record of today's note if your PCP is in our system *Return to Emergency Department if you should have any new, worsening or concerning symptoms, such as [fever greater than 101 F, shaking chills, worsening pain, persistent vomiting or other bothersome symptoms] Prescriptions: No Action levothyroxine [Synthroid] 75 mcg tablet 75 mcg PO QAM Qty: 90 0RF atorvastatin [Lipitor] 10 mg tablet 10 mg PO HS Qty: 30 0RF Rx Instructions: Must make appt with new provider or send refills to [facility]isc[facility] Guerrero Referrals: Francisca Nieto ARNP [Primary Care Provider] -
[2022-04-16] MEDS: SODIUM CHLORIDE 0.9% 1,000 ML 1000 ML IV (23:26)
[2022-04-16 23:28] LABS: Alanine Aminotransferase 46 IU/L (<35); Albumin 3.9 g/dL (3.5-5.0); Albumin Globulin Ratio 1.3 (1.0-2.8); Alkaline Phosphatase 54 U/L (38-126); Aspartate Aminotransferase 31 IU/L (14-36); BUN Creatinine Ratio 24.7 (6-22); Bilirubin Total 0.2 mg/dL (0.2-1.3); Blood Urea Nitrogen 23 mg/dL (7-17); Calcium 8.6 mg/dL (8.4-10.2); Carbon Dioxide 25 mmol/L (22-32); Chloride 104 mmol/L (98-107); Creatine Kinase 69 U/L (30-135); Estimated Glomerular Filt Rate > 60 mL/min (>60); Glucose 121 mg/dL (70-100); HEMOLYSIS 21 (0-50); Potassium 3.5 mmol/L (3.4-5.1); Sodium 137 mmol/L (137-145); Total Protein 6.9 g/dL (6.3-8.2)
[2022-04-16 23:31] LABS: Add Manual Diff / Slide Review NO; Basophils Absolute Auto 100 /uL (0-100); Basophils Percent Auto 0.7 % (0-2); Eosinophils Absolute Auto 400 /uL (0-450); Eosinophils Percent Auto 4.2 % (2-4); Hematocrit 35.5 % (36-46); Hemoglobin 11.6 g/dL (12.0-16.0); Lymphocytes Absolute Auto 3700 /uL (1100-4500); Lymphocytes Percent Auto 35.9 % (25-40); Mean Corpuscular HGB Conc 32.7 % (30-36); Mean Corpuscular Volume 85.5 fL (80-100); Monocytes Absolute Auto 1000 /uL (0-900); Neutrophils Absolute Auto 5000 /uL (1500-7000); Neutrophils Percent Auto 49.2 % (50-75); Platelet Count 356 X10^3/uL (150-400); Red Blood Cell Count 4.15 X10^6/uL (4.0-5.2); Red Cell Distribution Width 13.8 % (11.6-14.8); White Blood Cell Count 10.2 X10^3/uL (4.5-11.0)
[2022-04-16 23:39] LABS: Troponin I < 0.012 ng/mL (0.01-0.034)
[2022-04-16 23:42] LABS: D Dimer < 215 ng/ml (<500)
[2022-04-17] VITALS: BP 108/62; PULSE 77; RESP 13; O2SAT 95
[2022-04-17 00:09] LABS: TSH w/ Reflex to FT4 7.75 uIU/mL (0.47-4.68)
[2022-04-17 00:15] VITALS: BP 109/69; PULSE 79; RESP 21; O2SAT 97
--- NOTE | 2022-04-17 00:21 | PC.NURSE ---
pt states she is feeling better
[2022-04-17 00:30] VITALS: BP 104/60; PULSE 85; RESP 21; O2SAT 95
[2022-04-17 03:24] LABS: Free T4, Direct Thyroxine 1.16 ng/dL (0.78-2.19)
== END 2022-04-17 01:07 | disposition home or self-care (01) ==
PROVIDERS: Emergency Provider Emergency Medicine; PCP Internal Medicine
DX: R55 Syncope and collapse (principal)
CPT/HCPCS: 80053; 81003; 82550; 83735; 84439; 84443; 84484; 85025; 85379; 93005; 93010; 99283; 99284

== ENCOUNTER → 2022-06-16 16:25 | Outpatient (CLI) | payer OTHER, SELFPAY ==
[2020-08-19 13:11] VITALS: BMI 33.5
--- NOTE | 2022-06-16 16:30 | DI.MRI.S_ITS ---
PROCEDURE: MR HEAD/BRAIN WO/W CON INDICATIONS: R55 TECHNIQUE: Noncontrast axial T1 spin echo, axial T2 fast spin echo, sagittal and axial FLAIR, coronal T2 fast spin echo, axial gradient echo, axial diffusion and ADC through the brain. After the administration of contrast, axial and coronal and sagittal 3D VIBE or T1 spin echo with fat saturation through the brain. COMPARISON: None. FINDINGS: Image quality: Excellent. CSF Spaces: Basal cisterns are patent. No extra-axial fluid collections. Ventricles are normal in size and shape. Brain: No midline shift. No intracranial bleeds or masses. No abnormal intracranial enhancement. The brainstem appears normal. Diffusion-weighted images demonstrate no acute ischemic insults. No chronic ischemic insults. Normal intravascular flow voids are present. Skull and face: Calvarial marrow is normal in signal. Orbits appear normal. Sinuses: Sinuses and mastoids appear clear. IMPRESSION: Unremarkable MRI of the brain. Dictated by: Nolberto Carranza M.D. on 06/16/2022 at 19:21 Approved by: Nolberto Carranza M.D. on 06/16/2022 at 19:24
--- NOTE | 2022-06-16 16:30 | DI.MG.S_ITS ---
BILATERAL DIGITAL SCREENING MAMMOGRAM 3D/2D WITH CAD: 06/16/2022 CLINICAL: Routine screening. Comparison is made to exams dated: 09/18/2020 mammogram, 09/26/2018 mammogram, and 09/07/2018 mammogram - [facility]. Both breasts are heterogeneously dense, which may obscure small masses (category c / 51-75% glandular tissue). Current study was also evaluated with a Computer Aided Detection (CAD) system. No significant masses, calcifications, or other findings are seen in either breast. There has been no significant interval change. IMPRESSION: NEGATIVE There is no mammographic evidence of malignancy. A 1 year screening mammogram is recommended. Based on the Tyrer Cuzick model (a risk assessment model) the patient's lifetime risk is 9.1% and her 10 year risk is 1.9%. According to the ACR, ACS, and NCCN guidelines, an annual breast MRI exam along with mammogram is recommended if the patient's lifetime risk is 20% or greater. This exam was interpreted at Station ID: [id number]. NOTE: For mammograms, a report in lay terms will be sent to the patient. Approximately 15% of breast malignancies will not be visualized mammographically. In the management of a palpable breast mass, a negative mammogram must not discourage biopsy of a clinically suspicious lesion. Electronically Signed By: Juan Jose marley/shelbi:06/19/2022 08:10:05 letter sent: Normal Exam ACR BI-RADS Category 1: Negative 3341F
== END ==
PROVIDERS: PCP Internal Medicine; Referring Provider Internal Medicine; Visit Provider Internal Medicine
DX: Z12.31 Encounter for screening mammogram for malignant neoplasm of breast (principal); G44.53 Primary thunderclap headache; R55 Syncope and collapse; R42 Dizziness and giddiness
CPT/HCPCS: 70553; 77063; 77067; A9579

== ENCOUNTER → 2022-06-16 16:26 | Outpatient (CLI) | payer OTHER, SELFPAY ==
[2020-08-19 13:11] VITALS: BMI 33.5
--- NOTE | 2022-06-16 16:29 | DI.US.S_ITS ---
PROCEDURE: US PELVIC COMPLETE INDICATIONS: L side pelvic pain/hx ovarian cysts TECHNIQUE: Real-time scanning was performed of the pelvic organs, with image documentation. Additional endovaginal scanning was necessary due to incomplete visualization of the adnexal and endometrial structures by transabdominal scanning. COMPARISON: [facility], US, US PELVIC COMPLETE, 06/18/2020, 12:14. FINDINGS: Uterus: Surgically absent. There are nabothian cysts within the remnant cervix. Ovaries: The ovaries were not visualized sonographically. No discrete adnexal mass identified. Other: There is a small amount of nonspecific free fluid in the pelvis near the cervix. IMPRESSION: 1. Ovaries not visualized sonographically. 2. No discrete adnexal mass identified. We strive to produce accurate, complete, and clear reports of imaging services. To assist us in improving patient care, this report was composed using standard report templates and voice recognition software. Therefore, it may contain abnormal punctuation, insertions and/or omissions. Occasional wrong-word or sound-alike substitutions may occur. Though we review the report and make efforts to correct it, we do recommend that the report be read carefully in proper context to recognize any text inaccuracies. Dictated by: Cory Johnson M.D. on 06/16/2022 at 20:08 Approved by: Cory Johnson M.D. on 06/16/2022 at 20:12
== END ==
PROVIDERS: PCP Internal Medicine; Referring Provider Obstetrics & Gynecology; Visit Provider Obstetrics & Gynecology
DX: R10.2 Pelvic and perineal pain (principal); N83.202 Unspecified ovarian cyst, left side
CPT/HCPCS: 76856

== ENCOUNTER → 2022-06-29 16:47 | Outpatient (CLI) | payer OTHER, SELFPAY ==
[2020-08-19 13:11] VITALS: BMI 33.5
--- NOTE | 2022-06-29 | DI.US.S_ITS ---
PROCEDURE: US THYROID INDICATIONS: HYPOTHYROIDISM TECHNIQUE: Real-time scanning was performed of the thyroid gland, with image documentation. COMPARISON: None. FINDINGS: Right: Thyroid lobe measures 4.3 x 1.4 x 1 cm, and is homogeneous in echotexture. Left: Thyroid lobe measures 4.6 x 1.3 x 0.9 cm, and is homogenous in echotexture. Isthmus: 0.2 cm thick No discrete thyroid nodules. IMPRESSION: Thyroid gland is normal in size. ACR TI-RADS definitions and recommendations: TI-RADS 1 (benign): 0 points. FNA not needed. TI-RADS 2 (not suspicious): 2 points. FNA not needed. TI-RADS 3 (mildly suspicious): 3 points. * FNA if 2.5 cm or larger, follow up if 1.5 cm or larger (at 1, 3, and 5 years). TI-RADS 4 (moderately suspicious): 4-6 points. * FNA if 1.5 cm or larger, follow up if 1 cm or larger (at 1, 2, 3, and 5 years). TI-RADS 5 (highly suspicious): 7 points or more. * FNA if 1 cm or larger, follow up if 0.5 cm or larger (every year for 5 years). Dictated by: Constantine Isaacs M.D. on 06/30/2022 at 9:45 Approved by: Constantine Isaacs M.D. on 06/30/2022 at 9:47
== END ==
PROVIDERS: PCP Internal Medicine; Referring Provider Internal Medicine; Visit Provider Internal Medicine
DX: E03.9 Hypothyroidism, unspecified (principal); R55 Syncope and collapse; R42 Dizziness and giddiness; R51.9 Headache, unspecified
CPT/HCPCS: 76536

== ENCOUNTER 2022-08-31 12:06 | Day surgery (SDC) | payer OTHER, SELFPAY ==
[2020-08-19 13:11] VITALS: BMI 33.5
--- NOTE | 2022-08-31 | PATH_ITS ---
[facility] Accession Number: [id number] No. of containers..01 Tissue . 01 Material submitted: . rectum - RECTAL POLYP . 01 Diagnosis: Rectal Polyp, Biopsy: Hyperplastic polyp. [facility] 09/05/2022 1028 Local . 01 Electronically signed: . Josefa Franz MD, Pathologist NPI- [id number] . 01 Gross description: . RECTAL POLYP: Received in formalin is 1 fragment(s) of noble, soft tissue measuring 0.1 x 0.1 x 0.1 cm submitted entirely in 1 cassette(s) /MAREN 09/01/2022 1908 Local . 01 Pathologist provided ICD-10: D12.8 . 01 CPT . 700899 Specimen Comment: A courtesy copy of this report has been sent to [phone] Performed at: 01 [facility] [address] [place] [address] [id number] MD Cory Menendez MD Phone: [phone]
[2022-08-31] MEDS: LACTATED RINGERS 1,000 ML 84 ML IV (12:19)
[2022-08-31 12:22] VITALS: BP 122/88; PULSE 95; RESP 16; TEMP 36.3; O2SAT 98; BMI 31.7
--- NOTE | 2022-08-31 12:44 | PM.HP.1 ---
History of Present Illness History of Present Illness Date Patient Seen: 08/31/22 Time Patient Seen: 12:44 Chief complaint: Colonoscopy Narrative: Juju is a 47-year-old woman who is here for a colonoscopy. She is never had 1 before. Her brother was diagnosed with colon cancer in his 30s. Patient History Surgical History Status post delivery Status post delivery Family & Social History Family History Brother Age: 45 Colon cancer Father Age: 74 Hypertension High cholesterol Grandfather Age: 89 Heart disease Mother Age: 68 Hypertension High cholesterol Sister Age: 43 Mental health problem Social History: household members spouse Tobacco & Substance use: Smoking Status Former smoker alcohol intake current alcohol intake frequency holiday/special occasion Substance Use Type does not use Meds Home Medications and Allergies Home Medications Medication Instructions Recorded Confirmed Type levothyroxine 75 mcg tablet 75 mcg PO QAM #90 tabs 05/07/18 08/31/22 Rx (Synthroid) atorvastatin 10 mg tablet (Lipitor) 10 mg PO HS #30 tabs 07/29/18 08/31/22 Rx Allergies Allergy/AdvReac Type Severity Reaction Status Date / Time meperidine [From DEMEROL] Allergy Mild vomiting Verified 08/31/22 12:20 Exam Vital Signs (past 8 hours): - 08/31/22 12:22 Temperature 97.4 F L Pulse Rate 95 H Respiratory Rate 16 Blood Pressure 122/88 Pulse Oximetry 98 Oxygen Delivery Method Room Air Oxygen Delivery Method Room Air Const General: No acute distress Assessment & Plan Assessment and plan (1) Family history of colon cancer: Status: Acute Plan We reviewed the risks and benefits of colonoscopy to screen for colon cancer and she would like proceed
--- NOTE | 2022-08-31 13:59 | PM.OP.COLON ---
Operative Date/Time/Diagnoses Date of procedure: 08/31/22 Time of procedure: 13:59 Pre-op diagnosis: Family history of colon cancer Post-op diagnosis: same Procedure & Clinicians Study performed: Colonoscopy Same procedure as scheduled: Yes Surgeon: Lane Mcclelland Procedure Notes Procedure in detail: Surgeon: Lane Mcclelland MD Anesthesia: Dr. Wiley Procedure: The patient was brought to the endoscopy suite, placed in left lateral decubitus position. The patient was connected to monitoring devices. A time-out was performed. Sedation was administered. Once the patient was adequately sedated, a digital rectal exam was performed and was normal. The scope was then inserted and advanced to the cecum where the appendiceal orifice was identified and photographed. The scope was then slowly withdrawn over greater than 6 minutes. The mucosa was thoroughly inspected. There was a 5 mm polyp rectum removed with a cold snare. The scope was retroflexed in the rectum. No other abnormalities were seen. The scope was straightened and removed. The patient was awakened and brought to recovery. Scope withdrawal time: 11 minutes Sedation time: 16 minutes EBL: 1 mL Findings: 5 mm rectal polyp Post-procedure Disposition: PACU
[2022-08-31 14:00] VITALS: BP 121/80; PULSE 98; RESP 20; TEMP 36.3; O2SAT 98
[2022-08-31 14:05] VITALS: BP 109/85; PULSE 89; RESP 20; O2SAT 98
[2022-08-31 14:11] VITALS: BP 131/97; PULSE 87; RESP 18; O2SAT 100
== END 2022-08-31 14:19 | disposition home or self-care (01) ==
PROVIDERS: PCP Internal Medicine; Referring Provider Surgery; Visit Provider Surgery
PROC: 0DJD8ZZ Inspection of Lower Intestinal Tract, Via Natural or Artificial Opening Endoscopic (ICD-10-PCS; CPT 45378; principal; 2022-08-31 13:15)
DX: Z12.11 Encounter for screening for malignant neoplasm of colon (principal); Z80.0 Family history of malignant neoplasm of digestive organs; K62.1 Rectal polyp
CPT/HCPCS: 45385; J2704

== ENCOUNTER → 2023-04-19 09:11 | Outpatient (CLI) | payer OTHER, SELFPAY ==
[2020-08-19 13:11] VITALS: BMI 33.5
== END ==
PROVIDERS: Family Provider Internal Medicine; PCP Internal Medicine; Referring Provider Internal Medicine; Visit Provider Internal Medicine
DX: G56.03 Carpal tunnel syndrome, bilateral upper limbs (principal)
CPT/HCPCS: 95885; 95886; 95911

== ENCOUNTER → 2023-09-15 10:09 | Outpatient (CLI) | payer OTHER, SELFPAY ==
[2020-08-19 13:11] VITALS: BMI 33.5
--- NOTE | 2023-09-15 | DI.MG.S_ITS ---
BILATERAL DIGITAL SCREENING MAMMOGRAM 3D/2D WITH CAD: 09/15/2023 CLINICAL: Routine screening. Comparison is made to exams dated: 06/16/2022 mammogram, 09/18/2020 mammogram, 09/26/2018 mammogram, and 09/07/2018 mammogram - [facility]. There are scattered areas of fibroglandular density in both breasts (category b / 25%-50% glandular tissue). Current study was also evaluated with a Computer Aided Detection (CAD) system. No significant masses, calcifications, or other findings are seen in either breast. There has been no significant interval change. IMPRESSION: NEGATIVE There is no mammographic evidence of malignancy. A 1 year screening mammogram is recommended. Based on the Tyrer Cuzick model (a risk assessment model) the patient's lifetime risk is 6.9% and her 10 year risk is 1.6%. According to the ACR, ACS, and NCCN guidelines, an annual breast MRI exam along with mammogram is recommended if the patient's lifetime risk is 20% or greater. This exam was interpreted at Station ID: [id number]. NOTE: For mammograms, a report in lay terms will be sent to the patient. Approximately 15% of breast malignancies will not be visualized mammographically. In the management of a palpable breast mass, a negative mammogram must not discourage biopsy of a clinically suspicious lesion. Electronically Signed By: Meredith maxwell/shelbi:09/17/2023 12:24:24 letter sent: Normal Exam ACR BI-RADS Category 1: Negative 3341F
== END ==
PROVIDERS: Family Provider Internal Medicine; PCP Internal Medicine; Referring Provider Internal Medicine; Visit Provider Internal Medicine
DX: Z12.31 Encounter for screening mammogram for malignant neoplasm of breast (principal); R92.323 Mammographic fibroglandular density, bilateral breasts
CPT/HCPCS: 77063; 77067

== ENCOUNTER → 2024-05-15 08:14 | Outpatient (CLI) | payer OTHER, SELFPAY ==
[2020-08-19 13:11] VITALS: BMI 33.5
--- NOTE | 2024-05-15 08:15 | DI.RAD.S_ITS ---
PROCEDURE: XR SHOULDER RT MIN 2V INDICATIONS: SHOULDER PAIN TECHNIQUE: 3 views of the shoulder were acquired. COMPARISON: None. FINDINGS: Bones: No fractures or dislocations but there is [id number] degenerative osteoarthritic change at the AC joint. No suspicious bony lesions. Visualized ribs appear intact. Soft tissues: No suspicious soft tissue calcifications. There is a worrisome finding of multiple relatively prominent rounded soft tissue radiodensity superimposed on the axilla. The largest measures approximately 5.3 cm adjacent to the proximal diaphysis of the right humerus. IMPRESSION: No acute bony abnormality. [id number] AC joint osteoarthritis. Please correlate clinically for what appears to be relatively prominent axillary adenopathy as indicated by sharply demarcated soft tissue radiodensities within the axillary fat adjacent to the proximal humerus. Dictated by: Micah Joaquin M.D. on 05/15/2024 at 10:32 Approved by: Micah Joaquin M.D. on 05/15/2024 at 10:37
== END ==
PROVIDERS: Family Provider Internal Medicine; PCP Internal Medicine; Referring Provider Internal Medicine; Visit Provider Internal Medicine
DX: M19.011 Primary osteoarthritis, right shoulder (principal); M25.511 Pain in right shoulder; G89.29 Other chronic pain
CPT/HCPCS: 73030

== ENCOUNTER → 2024-06-02 13:25 | Outpatient (CLI) | payer OTHER, SELFPAY ==
[2020-08-19 13:11] VITALS: BMI 33.5
--- NOTE | 2024-06-02 13:27 | DI.MG.S_ITS ---
UNILATERAL RIGHT DIGITAL DIAGNOSTIC MAMMOGRAM 3D/2D: 06/02/2024 CLINICAL: Follow up from shoulder radiograph 05/15/2024 with concern for right lymphadenopathy. Comparison is made to exams dated: 09/15/2023 mammogram, 06/16/2022 mammogram, and 09/18/2020 mammogram - [facility]. There are scattered areas of fibroglandular density (category b / 25%-50% glandular tissue). No significant masses, calcifications, or other findings are seen in the breast. No abnormal lymph nodes are seen in the right axilla. IMPRESSION: INCOMPLETE: NEED ADDITIONAL IMAGING EVALUATION No mammographic evidence of malignancy. Recommend evaluation of the right axilla with targeted ultrasound, which is scheduled to immediately follow this exam. Based on the Tyrer Cuzick model (a risk assessment model) the patient's lifetime risk is 6.9% and her 10 year risk is 1.6%. According to the ACR, ACS, and NCCN guidelines, an annual breast MRI exam along with mammogram is recommended if the patient's lifetime risk is 20% or greater. This exam was interpreted at Station ID: [id number]. NOTE: For mammograms, a report in lay terms will be sent to the patient. Approximately 15% of breast malignancies will not be visualized mammographically. In the management of a palpable breast mass, a negative mammogram must not discourage biopsy of a clinically suspicious lesion. Electronically Signed By: Avril Brwon M.D., Ph.D. eb/:06/03/2024 10:29:50 letter sent: Additional Imaging Needed ACR BI-RADS Category 0: Incomplete: Need Additional Imaging Evaluation
--- NOTE | 2024-06-02 13:29 | DI.US.S_ITS ---
LIMITED ULTRASOUND OF RIGHT BREAST: 06/02/2024 CLINICAL: Follow up from Right shoulder radiograph 05/15/2024. Comparison is made to exams dated: 06/02/2024 mammogram, 09/15/2023 mammogram, 06/16/2022 mammogram, 09/18/2020 mammogram, 09/26/2018 ultrasound, and 09/26/2018 mammogram - [facility]. Color flow and real-time ultrasound of the right breast 9 o'clock region were performed. Del Real scale images of the real-time examination were reviewed. There are morphologically normal axillary lymph nodes. No sonographic abnormality to correspond to findings seen on recent right shoulder radiograph 05/15/2024. IMPRESSION: BENIGN Morphologically normal right axillary lymph nodes are benign. No mammographic or sonographic evidence of malignancy. Recommend return to routine annual mammogram screening (due September 2024). Consider further evaluation with shoulder MRI for previously described findings on 05/15/2024 radiograph given patient's presenting symptoms of right shoulder pain. Findings and recommendations were conveyed to the patient during today's evaluation. This exam was interpreted at Station ID: [id number]. Electronically Signed By: Avril Brown M.D., Ph.D. eb/:06/03/2024 10:33:25 letter sent: Normal Exam ACR BI-RADS Category 2: Benign
== END ==
LOC: MAMMO 13:26
PROVIDERS: Family Provider Internal Medicine; PCP Internal Medicine; Referring Provider Internal Medicine; Visit Provider Internal Medicine
DX: N63.11 Unspecified lump in the right breast, upper outer quadrant (principal); R59.0 Localized enlarged lymph nodes; R92.2 Inconclusive mammogram
CPT/HCPCS: 76642; 77065; G0279

== ENCOUNTER → 2024-07-03 11:39 | Outpatient (CLI) | payer OTHER, SELFPAY ==
[2020-08-19 13:11] VITALS: BMI 33.5
--- NOTE | 2024-07-03 11:40 | DI.MRI.S_ITS ---
PROCEDURE: MR SHOULDER RT WO CON INDICATIONS: CHRONIC RIGHT SHOULDER PAIN TECHNIQUE: Noncontrast oblique coronal T2 fast spin echo with fat saturation, oblique sagittal T1 spin echo and T2 fast spin echo with fat saturation, axial T1 spin echo and T2 fast spin echo with fat saturation through the shoulder. COMPARISON: [facility], CR, XR SHOULDER RT MIN 2V, 05/15/2024, 8:19. FINDINGS: Image quality: Excellent. Rotator cuff: In the supraspinatus, there is high-grade, interstitial tear at the posterior footprint, extending to a high-grade, bursal sided tear at the anterior footprint of the infraspinatus (8:9). There is additional low-grade interstitial tear at the critical zone at the junction of the supraspinatus and infraspinatus. The teres minor is unremarkable. Low-grade articular sided tear of the superior fiber of the subscapularis. No muscle edema or fatty atrophy. Bones and bursae: Capsular hypertrophy of the acromioclavicular joint with associated erosion, and marked marrow edema, raising concern for erosive/inflammatory arthropathy such as rheumatoid arthritis, osteolysis, or moderate degenerative changes. Type 1 acromion. No os acromiale. Trace subacromial/subdeltoid bursitis. Mild subchondral cystic changes at the posterior greater tuberosity, reactive. No acute fracture. No focal chondral defect of the glenohumeral articulation. Capsule and soft tissues: Near circumferential labral tear. No paralabral cyst. Low-grade interstitial tear of the extra-articular biceps tendon. The intra-articular biceps tendon is unremarkable. There is a 6 mm ganglion cyst immediately inferior to the lesser tuberosity. No significant glenohumeral effusion. No intra-articular body. No axillary lymphadenopathy. IMPRESSION: 1. Findings concerning for erosive/inflammatory arthropathy, osteolysis, or moderate degenerative changes of the acromioclavicular joint. Recommend clinical correlation. 2. High-grade tear at the posterior footprint of the supraspinatus, extending to the anterior footprint of the infraspinatus. 3. Additional low-grade tear at the critical zone of the junction of the supraspinatus and infraspinatus. 4. Low-grade tear of the superior fiber of the subscapularis. 5. Near circumferential labral tear. 6. Low-grade tear of the extra-articular biceps tendon. 7. 6 mm ganglion cyst inferior to the lesser tuberosity. Dictated by: Shellie Johnson M.D. on 07/03/2024 at 14:20 Approved by: Shellie Johnson M.D. on 07/03/2024 at 14:34
== END ==
PROVIDERS: Family Provider Internal Medicine; PCP Registered Nurse; Referring Provider Internal Medicine; Visit Provider Internal Medicine
DX: M75.111 Incomplete rotator cuff tear or rupture of right shoulder, not specified as traumatic (principal); S43.491A Other sprain of right shoulder joint, initial encounter; S46.211A Strain of muscle, fascia and tendon of other parts of biceps, right arm, initial encounter; M67.411 Ganglion, right shoulder; M25.511 Pain in right shoulder; G89.29 Other chronic pain
CPT/HCPCS: 73221